=== PATIENT | female | born 1990 | race Hispanic/Latino ===

== ENCOUNTER 2020-01-18 18:28 | Inpatient (IN) | payer MEDICAID ==
[~2020-01-18] VITALS: Ht 157.5 cm; Wt 73.5 kg
[2020-01-18 18:51] VITALS: BP 120/74
[2020-01-18 19:06] LABS: APPEARANCE,URINE Clear (CLEAR); BILIRUBIN,URINE Negative (NEGATIVE); COLOR,URINE Yellow (YELLOW); GLUCOSE, URINE (UA) Negative (NEGATIVE); KETONES,URINE Negative (NEGATIVE); LEUKOCYTE ESTERASE ,URINE Negative (NEGATIVE); NITRATE,URINE Negative (NEGATIVE); OCCULT BLOOD,URINE Small (NEGATIVE); PROTEIN,URINE Negative (NEGATIVE); UROBILINOGEN,URINE 0.2 mg/dL (0.2-1.0)
[2020-01-18 19:21] LABS: BACTERIA,URINE Few /HPF (None Seen); RBC,URINE 0-1 /HPF (0-1); WBC,URINE 0-1 /HPF (0-1)
[2020-01-18 19:59] LABS: MEAN CORPUSCULAR HEMOGLOBIN 24.9 pg (27.0-33.0); MEAN CORPUSCULAR HGB CONC 32.2 g/dL (32.0-36.0); MEAN CORPUSCULAR VOLUME 77.3 fL (79-99); PLATELET COUNT (AUTO) 357 K/uL (130-400); RED BLOOD CELL COUNT(AUTO) 4.66 MIL/uL (4.00-5.50); RED CELL DISTRIBUTION WIDTH 14.1 % (11.0-15.5); WHITE BLOOD COUNT (AUTO) 12.4 K/uL (4.8-10.8)
[2020-01-18] MEDS ORDERED: LACTATED RINGERS 1000ML 1,000 ML IV ONE (19:59)
[2020-01-18] MEDS ORDERED: LACTATED RINGERS 500 ML 500 ML IV PRN (20:00)
[2020-01-18] MEDS ORDERED: ROPIVACAINE 0.2% 100ML VIAL 100 ML EP SCH (20:00)
[2020-01-18] MEDS ORDERED: EPHEDRINE SULFATE 50 MG/ML AMPULE IVP PRN (20:00)
[2020-01-18] MEDS ORDERED: NALOXONE HCL 0.4 MG/1 ML ML IV PRN (20:00)
[2020-01-18] MEDS ORDERED: LACTATED RINGERS 1000ML 1,000 ML IV PRN (20:00)
[2020-01-18] MEDS ORDERED: LACTATED RINGERS 1000ML 1,000 ML IV SCH (20:00)
[2020-01-18] MEDS ORDERED: FENTANYL CITRATE PF 50 MCG/1 ML 2ML VIAL ONE (20:22)
[2020-01-18] MEDS ORDERED: CITRIC ACID/SODIUM CITRATE 30 ML UDCUP ONE (20:52)
[2020-01-18 22:12] VITALS: BP 100/59
[2020-01-18] MEDS ORDERED: CITRIC ACID/SODIUM CITRATE 30 ML UDCUP PO SCH (22:15)
[2020-01-19] MEDS: OXYTOCIN-LR 20 UNITS/1000 ML 1,000 ML IV SCH ×2 (00:05→02:42)
[2020-01-19] MEDS ORDERED: ACETAMINOPHEN 325 MG TAB PO PRN (00:15)
[2020-01-19] MEDS ORDERED: DIPH,PERTUSS(ACELL),TET VAC/PF 0.5 ML VIAL IM PRN (00:15)
[2020-01-19] MEDS ORDERED: LANOLIN 30GM OINTMENT TP PRN (00:15)
[2020-01-19] MEDS ORDERED: ACETAMINOPHEN-CODEINE 300/30MG TAB PO PRN (00:15)
[2020-01-19] MEDS ORDERED: BENZOCAINE/LANOLIN/ALOE VERA 60 ML AEROSOL TP PRN (00:15)
[2020-01-19] MEDS ORDERED: WITCH HAZEL 1 PAD TP PRN (00:15)
[2020-01-19] MEDS ORDERED: IBUPROFEN 600 MG TABLET PO PRN (00:15)
[2020-01-19] MEDS ORDERED: IBUPROFEN 600 MG TABLET ONE (01:03)
[2020-01-19 04:37] VITALS: BP 132/92
[2020-01-19] MEDS ORDERED: PREN-154 PO (05:59)
[2020-01-19 06:26] VITALS: BP 109/70
[2020-01-19] MEDS: DOCUSATE SODIUM 100 MG CAP PO SCH ×2 (08:59→20:27)
[2020-01-19 11:10] VITALS: BP 120/74
[2020-01-19 16:00] VITALS: BP 124/77
[2020-01-19 19:50] VITALS: BP 116/77
[2020-01-20 07:16] LABS: HEPATITIS Bs ANTIGEN SCREEN P Negative (Negative)
== END 2020-01-19 21:25 | disposition home or self-care (01) | DRG 560 ==
LOC: EDH 18:28 → LDH 18:46 → OBSVTOIN 18:46 → WSH 01-19 04:30
PROVIDERS: ADMIT Obstetrics & Gynecology; ATTEND Obstetrics & Gynecology
PROC: 10E0XZZ Delivery of Products of Conception, External Approach (ICD-10-PCS; principal; 2020-01-19)
PROC: 3E0234Z Introduction of Serum, Toxoid and Vaccine into Muscle, Percutaneous Approach (ICD-10-PCS; 2020-01-19)
PROC: 3E0R3BZ Introduction of Anesthetic Agent into Spinal Canal, Percutaneous Approach (ICD-10-PCS; 2020-01-19)
PROC: 00HU33Z Insertion of Infusion Device into Spinal Canal, Percutaneous Approach (ICD-10-PCS; 2020-01-19)
DX: O99.62 Diseases of the digestive system complicating childbirth (principal); K21.9 Gastro-esophageal reflux disease without esophagitis; O99.52 Diseases of the respiratory system complicating childbirth; J45.909 Unspecified asthma, uncomplicated; Z3A.38 38 weeks gestation of pregnancy; Z37.0 Single live birth; Z88.2 Allergy status to sulfonamides; Z23 Encounter for immunization; Z88.8 Allergy status to other drugs, medicaments and biological substances
CPT/HCPCS: 36415; 81001; 85027; 86592; 86850; 86900; 86901; 87340; 90715; A4314; G0378; J2590; J2795; J3010; J7120

== ENCOUNTER 2020-04-06 07:06 | Day surgery (SDC) | payer MEDICAID ==
[2020-04-03 11:11] LABS: BASOPHILS % (AUTO) 0.6 % (0.0-5.0); EOSINOPHILS % (AUTO) 14.6 % (0.0-8.0); LYMPHOCYTES % (AUTO) 25.5 % (21.0-51.0); MEAN CORPUSCULAR HEMOGLOBIN 25.1 pg (27.0-33.0); MEAN CORPUSCULAR HGB CONC 31.7 g/dL (32.0-36.0); MEAN CORPUSCULAR VOLUME 79.2 fL (79-99); MONOCYTES % (AUTO) 3.7 % (3.0-13.0); NEUTROPHILS % (AUTO) 55.4 % (40.0-77.0); PLATELET COUNT (AUTO) 361 K/uL (130-400); RED BLOOD CELL COUNT(AUTO) 5.18 MIL/uL (4.00-5.50); RED CELL DISTRIBUTION WIDTH 17.1 % (11.0-15.5); WHITE BLOOD COUNT (AUTO) 8.3 K/uL (4.8-10.8)
[2020-04-03] MEDS: CEFAZOLIN SODIUM 1 GM VIAL IVP SCH (12:15)
[2020-04-06] VITALS (13 sets, daily range): BP systolic 107–132; BP diastolic 51–82
[~2020-04-06] VITALS: Ht 154.9 cm; Wt 70.0 kg
[~2020-04-06 07:06] MED LIST: CALDOLOR 800MG+NS 250ML 250 ML IV SCH; PREN-154 PO
[2020-04-06] MEDS ORDERED: LACTATED RINGERS 1000ML 1,000 ML IV ONE (07:58)
[2020-04-06] MEDS ORDERED: BUPIVACAINE/PF 0.5% 30ML VIAL ONE (08:01)
[2020-04-06] MEDS ORDERED: PROPOFOL 10 MG/ML 20ML VIAL IV ONE (08:38)
[2020-04-06] MEDS ORDERED: SUCCINYLCHOLINE CHLORIDE 20 MG/ML 10 ML VIAL ONE (08:38)
[2020-04-06] MEDS ORDERED: FENTANYL CITRATE PF 50 MCG/1 ML 2ML VIAL ONE (08:38)
[2020-04-06] MEDS ORDERED: MIDAZOLAM HCL 1 MG/ML 2ML VIAL ONE (08:39)
[2020-04-06] MEDS ORDERED: ROCURONIUM 10MG/1ML SYR 10 MG/ML ML ONE (08:39)
[2020-04-06] MEDS: CEFAZOLIN SODIUM 1 GM VIAL IVP SCH (09:02)
[2020-04-06] MEDS ORDERED: GLYCOPYRROLATE 1 MG/5 ML SYRINGE ONE (09:26)
[2020-04-06] MEDS ORDERED: NEOSTIGMINE 5MG/5ML SYR IV ONE (09:26)
[2020-04-06] MEDS ORDERED: MEPERIDINE-PF 25 MG/ML SYG ONE (09:44)
[2020-04-06] MEDS ORDERED: ONDANSETRON 4MG INJ ONE (09:56)
[2020-04-06] MEDS ORDERED: METOCLOPRAMIDE 10 MG/2 ML VIAL ONE (10:00)
== END 2020-04-06 11:15 | disposition home or self-care (01) ==
LOC: DAH 07:06
PROVIDERS: ATTEND Obstetrics & Gynecology
DX: Z30.2 Encounter for sterilization (principal); Z20.822 Contact with and (suspected) exposure to COVID-19; N85.4 Malposition of uterus; F41.9 Anxiety disorder, unspecified; J45.909 Unspecified asthma, uncomplicated; Z83.3 Family history of diabetes mellitus; Z82.0 Family history of epilepsy and other diseases of the nervous system; Z80.3 Family history of malignant neoplasm of breast; Z80.1 Family history of malignant neoplasm of trachea, bronchus and lung; Z80.0 Family history of malignant neoplasm of digestive organs; Z82.61 Family history of arthritis; Z82.5 Family history of asthma and other chronic lower respiratory diseases; Z87.891 Personal history of nicotine dependence; Z72.89 Other problems related to lifestyle
CPT/HCPCS: 36415 ×2; 58670; 84703; 85025; 86850 ×2; 86900 ×2; 86901 ×2; A4215; A4221; A4222; A4223; A4351; A4649; A4663; C1769 ×2; C9803; G0168; J0330; J0690; J2175; J2250; J2405; J2704; J2710; J2765; J3010; J3490 ×2; J7030; J7120; U0003; J1741

== ENCOUNTER 2020-04-07 14:15 | Emergency (ER) | payer MEDICAID ==
[~2020-04-07 14:15] MED LIST changes: -CALDOLOR 800MG+NS 250ML 250 ML IV SCH
[2020-04-07] MEDS ORDERED: LIDOCAINE HCL 2% VISCOUS 15 ML UDCUP ONE (15:17)
[2020-04-07] MEDS ORDERED: MAG/ALUM/SIMETH 30 ML UDCUP ONE (15:17)
[2020-04-07] MEDS ORDERED: ACETAMINOPHEN WITH CODEINE 1 TAB TAB ONE (15:17)
== END 2020-04-07 15:26 | disposition home or self-care (01) ==
LOC: EDH 14:15
DX: R13.10 Dysphagia, unspecified (principal); Z88.2 Allergy status to sulfonamides
CPT/HCPCS: 70360